=== PATIENT | female | born 1970 | race Caucasian/White ===

== ENCOUNTER → 2016-08-06 | Outpatient (CLI) | payer OTHER ==
--- NOTE | 2016-08-06 16:32 | REPMRS ---
Patient History The patient states she has not had a clinical breast exam in over a year. No known family history of cancer. Taking hormonal contraceptives for 3 years. Prior mammograms done at [facility] Digital Mammo Screening Bilat: August 06, 2016 - Exam #: [id number] Bilateral CC and MLO view(s) were taken. Technologist: Dennise Rodriguez, Technologist Prior study comparison: July 25, 2015, digital bilateral screening mammo, performed at [facility]. January 04, 2014, digital bilateral screening mammo, performed at [facility]. FINDINGS: There are scattered fibroglandular densities. There is a moderate amount of residual fibroglandular tissue which is fairly symmetric. There is no interval development of dominant mass, architectural distortion, or clustered microcalcification typical of malignancy. There has been no change in the appearance of the mammogram from the prior studies. ASSESSMENT: BI-RADS/ACR category 1 mammogram. Negative. Recommendation Routine screening mammogram of both breasts in 1 year (for women over age 40). This mammogram was interpreted with the aid of an FDA-approved computer-aided dectection system. Electronically Signed By: Lionel Boone MD 08/06/16 4005
== END ==
LOC: M RAD 15:50
PROVIDERS: ATTEND Family Medicine
DX: Z12.31 Encounter for screening mammogram for malignant neoplasm of breast (principal)

== ENCOUNTER → 2017-03-07 | Outpatient (REF) | payer OTHER | LOC: M SFHCLERA 16:40 | PROVIDERS: ATTEND Family Medicine | DX: N72 Inflammatory disease of cervix uteri (principal) ==